=== PATIENT | female | born 1975 | race Caucasian/White ===

== ENCOUNTER → 2017-03-09 | Outpatient (CLI) | payer OTHER | LOC: CIMAGING 10:06 | DX: Z12.31 Encounter for screening mammogram for malignant neoplasm of breast (principal) | CPT/HCPCS: G0202 ==

== ENCOUNTER → 2017-07-13 | Outpatient (CLI) | payer OTHER ==
--- NOTE | 2017-07-13 16:19 | CPEKG ---
Heart Rate: 69 RR Interval: 870 P-R Interval: 124 QRSD Interval: 94 QT Interval: 388 QTC Interval: 416 P Delong: 57 QRS Delong: 59 T Wave Delong: 48 EKG Severity - NORMAL ECG - EKG Impression: SINUS RHYTHM Electronically Signed By: Bhavik Laboy 16-Jul-2017 11:49:42
== END ==
LOC: FCP 16:08
PROVIDERS: ATTEND Psychiatry & Neurology Psychiatry
DX: Z13.6 Encounter for screening for cardiovascular disorders (principal)

== ENCOUNTER → 2017-09-07 | Outpatient (CLI) | payer MEDICAID | LOC: BRMIMAGING 10:34 → EDSTATUS 10:35 | PROVIDERS: ATTEND Registered Nurse | DX: G57.01 Lesion of sciatic nerve, right lower limb (principal); M16.11 Unilateral primary osteoarthritis, right hip; M43.16 Spondylolisthesis, lumbar region; M46.96 Unspecified inflammatory spondylopathy, lumbar region; M51.36 Other intervertebral disc degeneration, lumbar region; M51.37 Other intervertebral disc degeneration, lumbosacral region; M46.97 Unspecified inflammatory spondylopathy, lumbosacral region | CPT/HCPCS: 72100-PO; 73502-PO ==

== ENCOUNTER 2018-11-17 14:39 | Emergency (ER) | payer MEDICAID ==
--- NOTE | 2018-11-17 15:15 | EDPHY ---
H & P Time Seen by Provider: 11/17/18 14:58 HPI/ROS: HPI Right knee injury. 43-year-old female by private vehicle with her mother. This patient reports that back in August she was speed walking when she twisted her right knee. Since that time she has had residual pain in the right knee described as underneath her patella. 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 She presents to the emergency department stating that she has had persistent pain when ambulating. She reports also she has had some swelling to the right knee. She has put ice on it this morning. This has provided some relief and reduce the swelling some. She denies any acute traumatic injury today. She is able to ambulate on it. She has not had a fever. No other complaints. ROS: Constitutional: No fever, no chills. No weakness. Musculoskeletal: Chronic back pain. No neck pain. As above. Skin: No rashes. Neurological: No focal weakness or altered sensation. Past medical history: Chronic back pain. She is currently being managed at [facility] and she is seen Dr. Stevie Hays. She has been taking naproxen. Her last dose of naproxen was this morning. Social history: Physical Exam: General Appearance: Alert, no distress. This patient is responding to questions appropriately and in full sentences. This patient appears well- hydrated and well-nourished. Eyes: Pupils equal and round no pallor or injection. No lid edema, erythema or injection. Right knee exam: She has a small to moderate effusion. There is no erythema or warmth. No ecchymosis. The knee joint is stable to valgus and varus stress testing. It is stable to anterior and posterior drawer testing. She has no tenderness on palpation of the medial and lateral joint lines. The knee fully flexes and extends passively and actively. The right lower extremity is neurovascularly intact. Neurological: Motor sensory function is grossly intact. Cranial nerves are normal. Somewhat antalgic gait favoring the right knee. Skin: Warm and dry, no rashes. Extremities are symmetrical except noted. All joints range without pain or impingement except noted. Psychiatric: No agitation. No depression. Database: EKG: Imaging: Right knee x-ray series: No evidence of fracture, subluxation, dislocation. The joint spaces appear normal. No radiographic effusion. Interpreted by me. Procedures: Emergency department course: Triage vital signs reviewed, she is mildly hypertensive. Triage vital signs are otherwise normal. Patient sent for right knee x-ray series. Her presentation is consistent with either an arthritic condition, likely osteoarthritis verses a meniscal injury. 3:45 p.m., the patient was re-evaluated, she is resting comfortably at this time. I discussed the results of her x-rays with her. We will fit her with a knee brace for extra support while she is ambulating. Plan will be to have her follow up with her primary care physician or with Orthopedics this week for re- evaluation and an outpatient MRI to evaluate for a meniscal injury. She is in agreement with this plan. She is currently taking diclofenac as prescribed. She will continue this medication. I explained that I did not want her to take any other NSAID in addition to this. She feels comfortable going home. She understands the follow-up plan. Return to emergency department precautions have been reviewed with her. All of her questions were answered. She was discharged from the emergency department in good condition. Differential Diagnosis: The differential diagnosis on this patient includes but is not limited to meniscal injury, arthritis. Ligamentous tear, septic joint, gouty arthritis unlikely. This represents a partial list of diagnoses considered. These considerations are based on history, physical exam, past history, reassessment and diagnostic testing. Smoking Status: Never smoked Constitutional: Initial Vital Signs Temperature (C) 36.6 C 11/17/18 14:41 Heart Rate 71 11/17/18 14:41 Respiratory Rate 18 11/17/18 14:41 Blood Pressure 145/89 H 11/17/18 14:41 O2 Sat (%) 100 11/17/18 14:41 O2 Delivery Mode Room Air Allergies/Adverse Reactions: No Known Allergies Allergy (Unverified 10/15/11 14:07) Home Medications: Medication Instructions Recorded Aricept 10/15/11 Carbatrol 10/15/11 Hydrocodone Bit/Acetaminophen 5 mg PO Q6 #10 tablet 10/15/11 [Hydrocodon-Acetaminophen 5-325] LAMICTAL XR 10/15/11 SEROQUEL XR 10/15/11 Medical Decision Making - Diagnostics Imaging Results: Imaging Impressions Knee X-Ray 11/17/18 15:09 Impression: Normal right knee radiographs. Departure - Departure Disposition: Home, Routine, Self-Care Clinical Impression: Right knee injury Condition: Good Instructions: Knee Pain (ED), R.I.C.E. Treatment (ED) Additional Instructions: Read and follow provided instructions. Follow-up with your primary care physician or with Orthopedics, Dr. Patrice Ramirez, or 1 of his partners this week for re-evaluation. Call their office on Sunday. Explained this is for an emergency department follow-up for further management of your right knee injury. I thank you need an MRI of your right knee for further diagnostic clarification. Take diclofenac as prescribed. Do not take Aleve or other NSAIDs in addition to this. Return to the emergency department for worsening pain, swelling, discoloration, redness or warmth involving her knee, fever or other serious concerns. Weightbear as tolerated on the knee. Continue icing and elevation as you have been. Referrals: Patrice Ramirez MD [Medical Doctor] - As per Instructions
[2018-11-17 15:55] VITALS: BP 136/78
== END 2018-11-17 15:55 | disposition home or self-care (01) ==
DX: M25.561 Pain in right knee (principal)